=== PATIENT | male | born 1980 | race African-American/Black ===

== ENCOUNTER → 2019-01-05 | Outpatient (CLI) | payer OTHER ==
[~2019-01-05] MED LIST: ALBUTEROL SULFATE 0.083% NEB 2.5 MG/3 ML AMPUL NEB ONE
--- NOTE | 2019-01-08 16:36 | Pulmonary Function Test ---
Pulmonary Function Test Date of Procedure:: 01/08/19 INDICATION:: Dyspnea Referring Provider: Dr. 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 Restrictive defect is implied but cannot be diagnosed on the basis of spirometry alone. (Restrictive defect may mask the degree of obstruction.) If clinically indicated complete pulmonary function test would be warranted.
== END ==
LOC: RT 13:26
DX: J44.9 Chronic obstructive pulmonary disease, unspecified (principal); E11.9 Type 2 diabetes mellitus without complications; Z79.84 Long term (current) use of oral hypoglycemic drugs; Z79.51 Long term (current) use of inhaled steroids; I50.9 Heart failure, unspecified
CPT/HCPCS: 94060; 94761